=== PATIENT | male | born 1955 | race Caucasian/White ===

== ENCOUNTER 2020-06-04 15:31 | Emergency (ER) | payer OTHER ==
[~2020-06-04] VITALS: Ht 182.9 cm; Wt 104.0 kg
--- NOTE | 2020-06-04 16:09 | NUR ---
PT STATES HIGH BLOOD PRESSURE AND TACHYCARDIA WHILE AT WORK. VSWNL IN ED. FURTHER C/O TREMULOUSNESS. DIFICULTY AMBULATING.
--- NOTE | 2020-06-04 17:43 | NUR ---
PIV started, blood sent to lab
[2020-06-04 17:52] LABS: BASOPHILS % (AUTO) 1 % (0-1); EOSINOPHILS % (AUTO) 1 % (1-7); LYMPHOCYTES % (AUTO) 22 % (22-44); MEAN CORPUSCULAR HEMOGLOBIN 32.9 pg (27.5-34.5); MEAN PLATELET VOLUME 9.2 fL (7.4-10.4); MONOCYTES % (AUTO) 14 % (2-9); NEUTROPHILS % (AUTO) 63 % (42-75); PLATELET COUNT 225 x10^3/uL (130-400); RED BLOOD COUNT 4.55 x10^6/uL (4.38-5.82); RED CELL DISTRIBUTION WIDTH 14.1 % (9.4-14.8)
[2020-06-04] MEDS ORDERED: SODIUM CHLORIDE FLUSH 10ML SYR IVF ONE (18:00)
[2020-06-04 18:02] LABS: MD NO
[2020-06-04 18:04] LABS: ALANINE AMINOTRANSFERASE 17 U/L (12-78); ALBUMIN 3.2 g/dL (3.4-5.0); ANION GAP 9 mmol/L (5-15); CALCIUM 8.9 mg/dL (8.5-10.1); CHLORIDE 111 mmol/L (98-107); CREATININE 1.01 mg/dL (0.7-1.3)
[2020-06-04 18:06] LABS: ALKALINE PHOSPHATASE 72 U/L (45-117); BILIRUBIN,TOTAL 0.6 mg/dL (0.2-1.0); TOTAL PROTEIN 7.6 g/dL (6.4-8.2)
--- NOTE | 2020-06-04 18:19 | NUR ---
Pt updated on poc. No needs at this time. VSWNL
--- NOTE | 2020-06-04 18:53 | NUR ---
Report to [facility]
[2020-06-04 20:43] VITALS: BP 106/76
--- NOTE | 2020-06-04 20:44 | NUR ---
Pt dc'd with written and verbal instructions, rx reviewed, pt and state uderstanding. Pt IV dc'd intact. Pt ambulatory out of ED without difficulty. Pt in no distress. VSS.
== END 2020-06-04 20:47 | disposition home or self-care (01) ==
LOC: ED 20:40
DX: J15.9 Unspecified bacterial pneumonia (principal); J12.9 Viral pneumonia, unspecified; R05 Cough; R06.00 Dyspnea, unspecified; R00.0 Tachycardia, unspecified; R06.02 Shortness of breath; G40.909 Epilepsy, unspecified, not intractable, without status epilepticus
CPT/HCPCS: 36415; 71045; 80053; 80164; 80177; 85025; 93005; 99285